=== PATIENT | male | born 1935 | race Caucasian/White ===

== ENCOUNTER 2017-08-20 21:15 | Emergency (ER) | payer OTHER ==
[~2017-08-20] VITALS: Ht 180.3 cm; Wt 96.3 kg
[~2017-08-20 21:15] MED LIST: AMIODARONE HCL100 MG PO; AMIODARONE HCL200 MG; AMIODARONE HCL200 MG PO; AMLODIPINE BESYL5 MG PO; ASPIR 8181 M1 PO; AUGMENTIN875 MG PO; CARAFATE1 GM PO; CRESTOR PO; CRESTOR40 MG PO; DOXYCYCLINE HY100 MG PO; FLONASE16 G1 BOTH NARES; LISINOPRIL20 MG PO; LISINOPRIL5 MG PO; LOSARTAN POTASS25 MG PO; MECLIZINE HCL25 MG PO; NAPROXEN500 MG PO; PLAVIX75 MG PO; PRADAXA150 MG PO; TAMSULOSIN HCL0.4 MG PO; TOPROL XL50 MG PO; TYLENOL WITH C1 EACH PO; XANAX0.25 MG PO; ZESTRIL,PRINIVIL5 MG PO; ZOLOFT50 MG PO
[2017-08-20 22:12] LABS: HEMATOCRIT 36.9 % (38.0-50.0); HEMOGLOBIN 12.2 G/DL (12.5-16.6); MCH 27.3 PG (29.0-34.0); MCHC 33.1 G/DL (30.0-36.0); MCV 82.6 FL (86-99); PLATELET COUNT 241 K/uL (156-360); RBC DIS.WIDTH-CV 14.6 % (11.8-14.6); RBC DIS.WIDTH-SD 44.5 % (39-53); RED BLOOD COUNT 4.47 M/uL (4.00-5.50); WHITE BLOOD COUNT 7.2 K/uL (4.1-10.2)
[2017-08-20 22:28] LABS: CHLORIDE 105 mEq/L (99-109); POTASSIUM 5.4 mEq/L (3.7-5.4); SODIUM 141 mEq/L (136-147)
[2017-08-20 22:30] LABS: GLUCOSE 109 mg/dL (70-99)
[2017-08-20 22:34] LABS: CREATININE 0.9 mg/dL (0.6-1.3); GFR ESTIMATE (CALCULATED) > 59 mL/min/ (58.99-99999); UREA NITROGEN (BUN) 18 mg/dL (9-23)
[2017-08-20 23:04] LABS: TROP-I INTERPRETATION NEGATIVE; TROPONIN-I < 0.01 ng/mL (0.0-0.30)
[2017-08-21] MEDS ORDERED: MOTRIN800 MG PO (00:16)
[2017-08-21 00:44] VITALS: BP 167/80
== END 2017-08-21 00:45 | disposition home or self-care (01) ==
LOC: EME 21:15
DX: S22.42XA Multiple fractures of ribs, left side, initial encounter for closed fracture (principal); W18.11XA Fall from or off toilet without subsequent striking against object, initial encounter; I10 Essential (primary) hypertension; E78.5 Hyperlipidemia, unspecified; I25.10 Atherosclerotic heart disease of native coronary artery without angina pectoris; I25.2 Old myocardial infarction; Z95.0 Presence of cardiac pacemaker; Z87.891 Personal history of nicotine dependence; Z79.82 Long term (current) use of aspirin; Z88.2 Allergy status to sulfonamides; Z88.1 Allergy status to other antibiotic agents; Z88.8 Allergy status to other drugs, medicaments and biological substances
CPT/HCPCS: 71046; 71100; 74177; 80048; 84484; 85027; 93005; 99281; 99284